=== PATIENT | female | born 2000 | race Hispanic/Latino ===

== ENCOUNTER 2022-01-09 10:46 | Outpatient (CLI) | payer OTHER | END 2022-01-09 10:47 | disposition home or self-care (01) | LOC: CSHLAB 10:46 | PROVIDERS: ATTEND Family Medicine | DX: Z20.822 Contact with and (suspected) exposure to COVID-19 (principal) | CPT/HCPCS: U0003; U0005 ==

== ENCOUNTER 2022-01-13 19:30 | Inpatient (IN) | payer MEDICAID, OTHER, SELFPAY ==
[~2022-01-13 19:30] MED LIST: Bupivacaine 0.25% HCL 30 ML VIAL ONE
[2022-01-14] MEDS ORDERED: Acetaminophen 500 MG TAB PO PRN (03:20)
[2022-01-14] MEDS ORDERED: hydrALAZINE 20 MG/ML VIAL SLOW IVP PRN ×2 (03:20→23:49)
[2022-01-14] MEDS ORDERED: Lidocaine 1% (PF) 30 ML VIAL SC PRN (03:20)
[2022-01-14] MEDS ORDERED: HYDROcodone/Acetaminophen 5/325 mg Tablet PO PRN ×3 (03:20→23:49)
[2022-01-14] MEDS ORDERED: Butorphanol Tartrate 1 MG/ML VIAL SLOW IVP PRN (03:20)
[2022-01-14] MEDS ORDERED: Carboprost 250 MCG/ML AMP IM PRN (03:20)
[2022-01-14] MEDS ORDERED: Misoprostol 200 MCG TAB PR PRN (03:20)
[2022-01-14] MEDS ORDERED: Promethazine HCl 25 MG/ML VIAL IM PRN ×3 (03:20→23:49)
[2022-01-14] MEDS ORDERED: Lactated Ringer's 1,000 ML IV SCH (03:20)
[2022-01-14] MEDS ORDERED: Methylergonovine 0.2 MG/ML VIAL IM PRN (03:20)
[2022-01-14] MEDS ORDERED: NS w/ Oxytocin 30 units 500 ML IV SCH ×3 (03:20→23:49)
[2022-01-14] MEDS ORDERED: Ondansetron PF 4 MG/2 ML Vial IVP PRN ×3 (03:20→23:49)
[2022-01-14] MEDS ORDERED: Ibuprofen 800 MG TAB PO PRN (03:20)
[2022-01-14] MEDS ORDERED: Diphenoxylate HCl/Atropine Tablet PO PRN (03:20)
[2022-01-14 04:16] VITALS: BMI 30.1
[2022-01-14] MEDS: Misoprostol 100 MCG TAB VAG SCH ×2 (04:30→08:40)
[2022-01-14 05:10] LABS: Mean Corpuscular HGB CONC 35.6 g/dL (32.0-36.0); Mean Corpuscular Hemoglobin 30.8 pg (27.0-33.0); Mean Corpuscular Volume 86.5 fl (81.6-98.3); Mean Platelet Volume 11.6 fl (7.4-10.4); Platelet Count 187 10x3/uL (150-450); RBC Distribution Width 12.9 % (11.5-14.5); Red Blood Cell (RBC) Count 4.22 10x6/uL (3.90-5.03); White Blood Cell (WBC) Count 13.6 10x3/uL (3.5-10.5)
[2022-01-14 05:32] LABS: Hep B Surf Ag Non-Reactive S/CO (NonReactive)
[2022-01-14 05:33] LABS: Syphilis Antibody Nonreactive (Nonreactive); Syphilis Antibody Index 0.05 S/CO (<1.00 Non-Reactive)
[2022-01-14 05:35] LABS: HBSAg Index 0.19 S/CO (0-0.99)
[2022-01-14] MEDS ORDERED: Fentanyl 2 mcg/Bup 0.1% Cadd 100 ML ONE (15:53)
[2022-01-14] MEDS ORDERED: Naloxone HCl 0.4 mg/ml Vial IVP PRN ×2 (16:38)
[2022-01-14] MEDS ORDERED: Acetaminophen 325 MG TAB PO PRN (16:38)
[2022-01-14] MEDS ORDERED: diphenhydrAMINE 50 MG/ML VIAL IVP PRN (16:38)
[2022-01-14] MEDS ORDERED: Moisturizing Cream (Eucerin) 113 GM JAR TOP PRN (16:38)
[2022-01-14] MEDS ORDERED: ePHEDrine Sulfate 50 MG/10 ML VIAL SLOW IVP PRN (16:38)
[2022-01-14] MEDS ORDERED: Lactated Ringer's 500 ML IV PRN (16:38)
[2022-01-14] MEDS ORDERED: Fentanyl 2 mcg/Bupivacaine 0.1% Cassette 100 ML EPIDURAL SCH (16:45)
[2022-01-14] MEDS ORDERED: Communication Order-Pharmacy FS SCH (16:45)
[2022-01-14] MEDS ORDERED: Lanolin Ointment 7 GM TUBE TOP PRN (23:49)
[2022-01-14] MEDS ORDERED: Bisacodyl 10 MG SUPP PR PRN (23:49)
[2022-01-14] MEDS ORDERED: Benzocaine-Menthol 82.5 ML CAN TOP PRN (23:49)
[2022-01-14] MEDS ORDERED: diphenhydrAMINE 25 MG CAP PO PRN (23:49)
[2022-01-14] MEDS ORDERED: Boostrix 0.5 ML (Tdap) VIAL IM ONE (23:49)
[2022-01-14] MEDS ORDERED: Milk Of Magnesia 30 ML UDCUP PO PRN (23:49)
[2022-01-15] MEDS: Ibuprofen 800 MG TAB PO SCH ×3 (06:10→21:16)
[2022-01-15] MEDS: Misoprostol 100 MCG TAB VAG SCH (08:58)
[2022-01-15] MEDS: Ferrous Sulfate 325 MG TAB PO SCH ×2 (08:59→16:31)
[2022-01-15] MEDS: Docusate 100 MG CAP PO SCH ×2 (09:34→21:16)
[2022-01-15] MEDS: Prenatal Vitamin 1 TAB PO SCH (09:34)
[2022-01-16] MEDS: Ibuprofen 800 MG TAB PO SCH ×2 (05:25→13:48)
[2022-01-16 07:55] VITALS: BP 113/65; TEMP 97.2
[2022-01-16] MEDS: Prenatal Vitamin 1 TAB PO SCH (08:32)
[2022-01-16] MEDS: Docusate 100 MG CAP PO SCH (08:32)
[2022-01-16] MEDS: Ferrous Sulfate 325 MG TAB PO SCH (08:33)
== END 2022-01-16 14:10 | disposition home or self-care (01) | DRG 807 ==
LOC: CSHLD 22:57 → CSHPP 01-15 01:24
PROVIDERS: ADMIT Family Medicine; ATTEND Family Medicine
PROC: 10E0XZZ Delivery of Products of Conception, External Approach (ICD-10-PCS; principal; 2022-01-14)
PROC: 10907ZC Drainage of Amniotic Fluid, Therapeutic from Products of Conception, Via Natural or Artificial Opening (ICD-10-PCS; 2022-01-14)
PROC: 3E0P7VZ Introduction of Hormone into Female Reproductive, Via Natural or Artificial Opening (ICD-10-PCS; 2022-01-14)
PROC: 0UQG7ZZ Repair Vagina, Via Natural or Artificial Opening (ICD-10-PCS; 2022-01-14)
PROC: 0UQMXZZ Repair Vulva, External Approach (ICD-10-PCS; 2022-01-14)
DX: O70.0 First degree perineal laceration during delivery (principal); Z37.0 Single live birth; Z3A.40 40 weeks gestation of pregnancy
CPT/HCPCS: 36415; 51702; 85027; 86780; 86850; 86900; 86901; 87340; J0595; J2001; J2590; J7120; S0020

== ENCOUNTER 2023-02-23 09:46 | Emergency (ER) | payer MEDICAID, SELFPAY ==
[2023-02-23 10:26] LABS: #Eosinphils 0.3 10x3/uL (0.0-0.5); #Monocytes 0.6 10x3/uL (0.0-1.1); #Neutrophils 9.8 10x3/uL (1.5-8.4); %Basophils 0.3 % (0.0-2.0); %Monocytes 4.5 % (0.0-10.0); %Neutrophils 72.9 % (40.0-75.0); Hemoglobin 12.8 g/dL (12.0-15.5); Mean Corpuscular HGB CONC 35.4 g/dL (32.0-36.0); Platelet Count 249 10x3/uL (150-450); RBC Distribution Width 12.3 % (11.5-14.5); Red Blood Cell (RBC) Count 4.26 10x6/uL (3.90-5.03); White Blood Cell (WBC) Count 13.5 10x3/uL (3.5-10.5)
[2023-02-23 10:46] LABS: Albumin 3.8 g/dL (3.5-5.0); Alkaline Phosphatase 44 U/L (40-110); Anion Gap 12 mmol/L (10-20); BUN (Urea Nitrogen) 9 mg/dL (7.0-18.7); Bilirubin, Total 0.5 mg/dL (0.2-1.2); Calc. Creatinine Clearance 0 mL/min (70-130); Calcium 8.7 mg/dL (7.8-10.44); Carbon Dioxide 19 mmol/L (22-29); Chloride 106 mmol/L (98-107); Estimated GFR 133; Globulin 3.2 g/dL (2.4-3.5); Glucose 85 mg/dL (70-105); Potassium 3.7 mmol/L (3.5-5.1); Sodium 133 mmol/L (136-145)
[2023-02-23 10:47] LABS: ALT (SGPT) 18 U/L (8-55); AST (SGOT) 14 U/L (5-34)
== END 2023-02-23 11:40 | disposition home or self-care (01) ==
LOC: CSHERS 09:46
DX: O20.0 Threatened abortion (principal); Z3A.01 Less than 8 weeks gestation of pregnancy
CPT/HCPCS: 36415; 76856; 80053; 84702; 85025; 86850; 86900; 86901

== ENCOUNTER 2023-10-02 10:51 | Inpatient (IN) | payer MEDICAID, OTHER, SELFPAY ==
[2023-10-05] MEDS ORDERED: Carboprost 250 MCG/ML AMP IM PRN (10:44)
[2023-10-05] MEDS ORDERED: fentaNYL 50 mcg/mL 1 mL Vial SLOW IVP PRN (10:44)
[2023-10-05] MEDS ORDERED: Diphenoxylate HCl/Atropine Tablet PO PRN (10:44)
[2023-10-05] MEDS ORDERED: HYDROcodone/Acetaminophen 5/325 mg Tablet PO PRN (10:44)
[2023-10-05] MEDS ORDERED: Methylergonovine 0.2 MG/ML VIAL IM PRN (10:44)
[2023-10-05] MEDS ORDERED: Ondansetron PF 4 MG/2 ML Vial IVP PRN (10:44)
[2023-10-05] MEDS ORDERED: Tranexamic Acid 1,000 MG/10 ML VIAL IVP PRN (10:44)
[2023-10-05] MEDS ORDERED: Acetaminophen 500 MG TAB PO PRN (10:44)
[2023-10-05] MEDS ORDERED: hydrALAZINE 20 MG/ML VIAL SLOW IVP PRN ×2 (10:44→17:56)
[2023-10-05] MEDS ORDERED: Promethazine HCl 25 MG/ML VIAL IM PRN ×2 (10:44→17:56)
[2023-10-05] MEDS ORDERED: Misoprostol 200 MCG TAB PR PRN (10:44)
[2023-10-05] MEDS ORDERED: Lidocaine 1% (PF) 30 ML VIAL SC PRN (10:44)
[2023-10-05] MEDS ORDERED: Oxytocin 30 units/NS 500 ML 500 ML IV SCH (10:45)
[2023-10-05 10:52] VITALS: BMI 30.1
[2023-10-05] MEDS: Oxytocin 30 units/NS 500 ML 500 ML IV SCH ×2 (10:53→14:58)
[2023-10-05 11:13] LABS: Hematocrit 38.7 % (34.9-44.5); Hemoglobin 13.2 g/dL (12.0-15.5); Mean Corpuscular HGB CONC 34.1 g/dL (32.0-36.0); Mean Platelet Volume 11.9 fl (7.4-10.4); Platelet Count 143 10x3/uL (150-450); White Blood Cell (WBC) Count 10.7 10x3/uL (3.5-10.5)
[2023-10-05 11:52] LABS: Syphilis Antibody Nonreactive (Nonreactive); Syphilis Antibody Index 0.06 S/CO (<1.00 Non-Reactive)
[2023-10-05 11:54] LABS: HBSAg Index 0.23 S/CO (0-0.99); Hep B Surf Ag - L&D Non-Reactive S/CO (NonReactive)
[2023-10-05] MEDS: Ibuprofen 800 MG TAB PO PRN (15:53)
[2023-10-05] MEDS: Oxytocin 30 units/NS 500 ML 500 ML ONE ×2 (16:23→17:45)
[2023-10-05] MEDS: Lactated Ringer's 1,000 ML IV SCH (16:23)
[2023-10-05] MEDS: Ondansetron PF 4 MG/2 ML Vial IVP PRN (17:45)
[2023-10-05] MEDS: Misoprostol 200 MCG TAB PO SCH (17:45)
[2023-10-05] MEDS: HYDROcodone/Acetaminophen 5/325 mg Tablet PO PRN (17:45)
[2023-10-05] MEDS: Oxytocin 30 units/NS 500 ML 500 ML IVPB SCH (17:45)
[2023-10-05] MEDS ORDERED: Lanolin Ointment 7 GM TUBE TOP PRN (17:56)
[2023-10-05] MEDS ORDERED: Bisacodyl 10 MG SUPP PR PRN (17:56)
[2023-10-05] MEDS ORDERED: diphenhydrAMINE 25 MG CAP PO PRN (17:56)
[2023-10-05] MEDS ORDERED: Milk Of Magnesia 30 ML UDCUP PO PRN (17:56)
[2023-10-05] MEDS: Methylergonovine 0.2 MG/ML VIAL ONE (17:57)
[2023-10-05] MEDS: Methylergonovine 0.2 MG/ML VIAL IM SCH (18:34)
[2023-10-05] MEDS: Ferrous Sulfate 325 MG TAB PO SCH (18:35)
[2023-10-05] MEDS: Boostrix 0.5 ML (Tdap) VIAL (>/=7 yrs of age) IM ONE (18:35)
[2023-10-05] MEDS: Ibuprofen 800 MG TAB PO SCH (21:22)
[2023-10-05] MEDS: Docusate 100 MG CAP PO SCH (21:22)
[2023-10-06 03:29] LABS: Hematocrit 30.9 % (34.9-44.5); Hemoglobin 10.8 g/dL (12.0-15.5); Mean Corpuscular Hemoglobin 30.5 pg (27.0-33.0); Mean Corpuscular Volume 87.3 fl (81.6-98.3); Mean Platelet Volume 10.7 fl (7.4-10.4); Platelet Count 180 10x3/uL (150-450); RBC Distribution Width 12.8 % (11.5-14.5); Red Blood Cell (RBC) Count 3.54 10x6/uL (3.90-5.03); White Blood Cell (WBC) Count 14.5 10x3/uL (3.5-10.5)
[2023-10-06] MEDS: Ferrous Sulfate 325 MG TAB PO SCH (08:10)
[2023-10-06] MEDS: Prenatal Vitamin 1 TAB PO SCH (08:10)
[2023-10-06 16:20] VITALS: BP 98/56; TEMP 98.3
== END 2023-10-06 16:55 | disposition home or self-care (01) | DRG 807 ==
LOC: CSHLD 10-05 10:17 → CSHPP 10-05 16:00
PROVIDERS: ADMIT Family Medicine; ATTEND Family Medicine
PROC: 10907ZC Drainage of Amniotic Fluid, Therapeutic from Products of Conception, Via Natural or Artificial Opening (ICD-10-PCS; principal; 2023-10-05)
PROC: 10E0XZZ Delivery of Products of Conception, External Approach (ICD-10-PCS; 2023-10-05)
DX: O48.0 Post-term pregnancy (principal); Z37.0 Single live birth; Z3A.40 40 weeks gestation of pregnancy; Z79.899 Other long term (current) drug therapy
CPT/HCPCS: 85027; 86780; 86850; 86900; 86901; 87340; J2210; J2405; J2590